=== PATIENT | male | born 1985 | race Caucasian/White ===

== ENCOUNTER → 2017-05-15 | Outpatient (CLI) | payer OTHER | END | disposition home or self-care (01) | LOC: CT 12:45 | PROC: BQ2HZZZ Computerized Tomography (CT Scan) of Left Ankle (ICD-10-PCS; principal; 2017-05-15) | DX: S93.402A Sprain of unspecified ligament of left ankle, initial encounter (principal); X58.XXXA Exposure to other specified factors, initial encounter; Y92.9 Unspecified place or not applicable ==